=== PATIENT | female | born 2000 | race Caucasian/White ===

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

== ENCOUNTER 2023-03-08 11:26 | Emergency (ER) | payer OTHER ==
[~2023-03-08] VITALS: Ht 167.7 cm; Wt 55.3 kg
--- NOTE | 2023-03-08 11:55 | ED Abdominal Pain ---
General Chief Complaint: Abdominal/GI Problems Stated Complaint: AB PAIN Source of Information: Patient Exam Limitations: No Limitations History of Present Illness Date Seen by Provider: Mar 08, 2023 Time Seen by Provider: 11:29 Initial Comments 22-year-old female presents the ER with complaints of right upper and lower abdominal pain that started on the morning of March 04. She states that she has been vomiting every time she eats or drinks since March 04. She reports that prior to March 04, she was constipated, she states now she has been having 2-3 episodes of diarrhea a day since the evening of March 04. She states she was seen at [facility] yesterday, they gave her Zofran which provided minimal relief. She states that they wanted her to come to the ER yesterday, but she did not want to. They told her to come to the ER if she got worse, and that is why she is here today. She says that [facility] is setting up an ultrasound for her, she is uncertain of exactly what they are ultrasounding. She denies fevers, vaginal bleeding, discharge, dysuria. Last menstrual cycle was 02/12. Previous abdominal surgeries includes an appendectomy. I spoke with nurse practitioner Lior at [facility] who saw patient yesterday. He states that he was concerned for cholecystitis due to patient complaint of right upper quadrant pain with nausea and vomiting and pain becoming worse after eating. He ordered an outpatient ultrasound of the gallbladder. Allergies and Home Medications Allergies Coded Allergies: No Known Drug Allergies (Unverified , 01/02/13) Patient Home Medication List Home Medication List Reviewed: Yes Albuterol Sulfate (Ventolin Hfa) 18 Gm Hfa.aer.ad, 2 PUFF IH TID PRN for SHORTNESS OF BREATH, (Reported) Entered as Reported by: ARTURO PATEL on 07/21/17 175 Dicyclomine HCl (Dicyclomine HCl) 20 Mg Tablet, 20 MG PO QID Prescribed by: Jo Alejo on 03/08/23 1348 Hydrocodone Bit/Acetaminophen (Lortab 5 Mg Tablet) 1 Each Tablet, 1-2 TAB PO 4-6HR PRN for PAIN Prescribed by: BRADFORD LI on 07/21/17 1903 Ondansetron (Ondansetron Odt) 4 Mg Tab.rapdis, 4 MG PO TID PRN for NAUSEA/VOMITING-1ST LINE, (Reported) Entered as Reported by: ARTURO PATEL on 07/21/17 6466 Review of Systems Review of Systems Constitutional: see HPI Past Aolokuj-Updcsz-Dyyeil Hx Patient Social History Tobacco Use?: Yes Tobacco type used: Cigarettes Smoking Status: Never a Smoker Smokeless Tobacco Frequency: Never a User Use of E-Cig and/or Vaping dev: Yes E-Cig or Vaping type used: Nicotine Use of E-Cig and/or Vaping Cade: Current Everyday User Substance use?: Yes Substance type: Marijuana, Other Additional substance use comme: COCAINE WEEKLY, POT DAILY Substance frequency: Daily Alcohol Use?: Yes Alcohol Frequency: Couple times a week Pt feels they are or have been: No Immunizations Up To Date Tetanus Booster (TDap): Unknown PED Vaccines UTD: Yes Seasonal Allergies Seasonal Allergies: No Past Medical History Surgeries: No Respiratory: No Currently Using CPAP: No Currently Using BIPAP: No Cardiac: No Neurological: No Reproductive Disorders: No Female Reproductive Disorders: Denies Sexually Transmitted Disease: No HIV/AIDS: No Gastrointestinal: No Musculoskeletal: No Endocrine: No Hearing Impairment: Denies Cancer: No Psychosocial: No Integumentary: No Blood Disorders: No Adverse Reaction/Blood Tranf: No Family Medical History Hypertension No Pertinent Family Hx Physical Exam Vital Signs Vital Signs - First Documented 03/08/23 11:38 Temp 36.2 Pulse 72 Resp 17 B/P (MAP) 109/93 (98) O2 Delivery Room Air Capillary Refill : Height/Weight/BMI Height: 5'4.00" Weight: 115lbs. 0oz. [id number]; 20.00 BMI Method:Stated General Appearance: WD/WN, no apparent distress Neck: supple, normal inspection Respiratory: lungs clear, normal breath sounds, no respiratory distress, no accessory muscle use Cardiovascular: regular rate, rhythm, no edema, no murmur Gastrointestinal: normal bowel sounds (normal lower quadrants), soft, abnormal bowel sounds (hypoactive upper quadrants); No rebound; tenderness (Right lower quadrant) Extremities: normal range of motion, normal inspection Neurologic/Psychiatric: alert, normal mood/affect Skin: normal color, warm/dry Progress/Results/Core Measures Results/Orders Lab Results Laboratory Tests Test 03/08/23 11:55 03/08/23 12:26 Range/Units White Blood Count 3.8 L 4.3-11.0 10^3/uL Red Blood Count 4.08 3.80-5.11 10^6/uL Hemoglobin 13.2 11.5-16.0 g/dL Hematocrit 40 35-52 % Mean Corpuscular Volume 97 80-99 fL Mean Corpuscular Hemoglobin 32 25-34 pg Mean Corpuscular Hemoglobin Concent 33 32-36 g/dL Red Cell Distribution Width 12.2 10.0-14.5 % Platelet Count 142 130-400 10^3/uL Mean Platelet Volume 10.3 9.0-12.2 fL Immature Granulocyte % (Auto) 0 % Neutrophils (%) (Auto) 50 42-75 % Lymphocytes (%) (Auto) 33 12-44 % Monocytes (%) (Auto) 13 H 0-12 % Eosinophils (%) (Auto) 4 0-10 % Basophils (%) (Auto) 0 0-10 % Neutrophils # (Auto) 1.9 1.8-7.8 10^3/uL Lymphocytes # (Auto) 1.3 1.0-4.0 10^3/uL Monocytes # (Auto) 0.5 0.0-1.0 10^3/uL Eosinophils # (Auto) 0.2 0.0-0.3 10^3/uL Basophils # (Auto) 0.0 0.0-0.1 10^3/uL Immature Granulocyte # (Auto) 0.0 0.0-0.1 10^3/uL Sodium Level 141 135-145 MMOL/L Potassium Level 3.8 3.6-5.0 MMOL/L Chloride Level 107 98-107 MMOL/L Carbon Dioxide Level 24 21-32 MMOL/L Anion Gap 10 5-14 MMOL/L Blood Urea Nitrogen 6 L 7-18 MG/DL Creatinine 0.88 0.60-1.30 MG/DL Estimat Glomerular Filtration Rate 96 BUN/Creatinine Ratio 7 Glucose Level 95 70-105 MG/DL Calcium Level 9.3 8.5-10.1 MG/DL Corrected Calcium 9.1 8.5-10.1 MG/DL Total Bilirubin 0.7 0.1-1.0 MG/DL Aspartate Amino Transf (AST/SGOT) 25 5-34 U/L Alanine Aminotransferase (ALT/SGPT) 19 0-55 U/L Alkaline Phosphatase 67 40-136 U/L C-Reactive Protein High Sensitivity 0.23 0.00-0.50 MG/DL Total Protein 6.9 6.4-8.2 GM/DL Albumin 4.2 3.2-4.5 GM/DL Lipase 17 8-78 U/L Urine Color YELLOW Urine Clarity SL CLOUDY Urine pH 7.5 5-9 Urine Specific [place] 1.020 1.016-1.022 Urine Protein NEGATIVE NEGATIVE Urine Glucose (UA) NEGATIVE NEGATIVE Urine Ketones NEGATIVE NEGATIVE Urine Nitrite NEGATIVE NEGATIVE Urine Bilirubin NEGATIVE NEGATIVE Urine Urobilinogen 0.2 < = 1.0 MG/DL Urine Leukocyte Esterase TRACE H NEGATIVE Urine RBC (Auto) NEGATIVE NEGATIVE Urine RBC RARE /HPF Urine WBC 2-5 /HPF Urine Squamous Epithelial Cells 25-50 H /HPF Urine Crystals NONE /LPF Urine Bacteria MODERATE H /HPF Urine Casts NONE /LPF Urine Mucus NEGATIVE /LPF Urine Culture Indicated YES My Orders Orders - JO ALEJO APRN Ua Culture If Indicated (03/08/23 11:29) Urine Bedside (03/08/23 11:29) Comprehensive Metabolic Panel (03/08/23 11:48) Lipase (03/08/23 11:48) Ed Iv/Invasive Line Start (03/08/23 11:48) Cbc With Automated Diff (03/08/23 11:48) Ketorolac Injection (Toradol Injection) (03/08/23 12:00) Ondansetron Injection (Zofran Injectio (03/08/23 12:00) Hs C Reactive Protein (03/08/23 11:48) Ns Iv 1000 Ml (Sodium Chloride 0.9%) (03/08/23 12:00) Ct Abdomen/Pelvis W (03/08/23 12:34) Iohexol Injection (Omnipaque 350 Mg/Ml 1 (03/08/23 12:45) Received Contrast (Hold Metformin- Contr (03/08/23 12:45) Ns (Ivpb) (Sodium Chloride 0.9% Ivpb Bag (03/08/23 12:45) Urine Culture (03/08/23 12:26) Medications Given in ED Current Medications Medications Dose Ordered Sig/Pearl Route Start Time Stop Time Status Last Admin Dose Admin Iohexol 100 ml ONCE ONCE IV 03/08/23 12:45 03/08/23 12:46 DC 03/08/23 12:52 63 ML Ketorolac Tromethamine 15 mg ONCE ONCE IVP 03/08/23 12:00 03/08/23 12:01 DC 03/08/23 11:57 15 MG Ondansetron HCl 4 mg ONCE ONCE IVP 03/08/23 12:00 03/08/23 12:01 DC 03/08/23 11:56 4 MG Sodium Chloride 100 ml ONCE ONCE IV 03/08/23 12:45 03/08/23 12:46 DC 03/08/23 12:52 80 ML Vital Signs/I&O 03/08/23 11:38 Temp 36.2 Pulse 72 Resp 17 B/P (MAP) 109/93 (98) O2 Delivery Room Air Progress Progress Note : Progress Note Patient seen and evaluated, resting in bed, no acute distress. Based on exam and symptoms, differential diagnosis includes but is not limited to gastroenteritis, irritable bowel syndrome, UTI, pyelonephritis, nephrolithiasis, mesenteric adenitis, or other intra-abdominal pathologies. She complains of right-sided abdominal pain, upper and lower. But on examination she has no tenderness to palpation in the right upper quadrant, only tenderness to palpation of the right lower quadrant. Work-up initiated including CBC, CMP, lipase, CRP, UA, urine . IV fluids, Toradol, Zofran ordered. [address] reviewed. CBC grossly normal, WBC slightly decreased 3.8. CMP grossly normal, CRP normal. Lipase normal. Urinalysis shows slightly elevated urine specific gravity 1.020, trace leukocytes, 2-5 WBCs, 25-50 squamous epithelial cells, moderate bacteria. Urine specimen is likely contaminated. Patient denies any urinary tract infection symptoms. CT shows no acute abnormality. Results discussed with patient. I think this is likely a viral gastroenteritis. Patient reports some improvement in pain and nausea. I offered more pain medication or nausea medication, patient declined. Discharge instructions and return precautions provided. After patient was given discharge paperwork, I decided to add Bentyl prescription. This was sent in. Bentyl prescription was discussed with patient. I also discussed with patient that she may try omeprazole [id number]. Departure Impression Primary Impression: Gastroenteritis Disposition: 01 HOME, SELF-CARE Condition: Stable Departure-Patient Inst. Decision time for Depature: 13:37 Referrals: [facility] [place] (PCP/Family) Primary Care Physician Patient Instructions: Clear Liquid Diet, Viral gastroenteritis in adults Add. Discharge Instructions: Consume a clear liquid diet for at least the next 24 hours. You may then slowly start to reincorporate food once your pain improves. When you start consuming food again, start with a BRAT diet: Bananas, rice, applesauce, toast. Try to consume plenty of fluids, take your Zofran to prevent vomiting. Keep in mind that one side effect of Zofran is constipation. Follow-up with your primary care provider if symptoms or not improving. Return for severe pain, recurrent vomiting, recurrent diarrhea, fever, or any other new, concerning, or worsening symptoms. All discharge instructions reviewed with patient and/or family. Voiced understanding. Scripts Dicyclomine HCl (Dicyclomine HCl) 20 Mg Tablet 20 MG PO QID, #28 TAB 0 Refills Prov: JO ALEJO APRN 03/08/23 JO ALEJO APRN Mar 08, 2023 11:55
[2023-03-08] MEDS ORDERED: ONDANSETRON 4 MG/2 ML (SDV) Z0FRAN IVP ONE (12:00)
[2023-03-08] MEDS ORDERED: KETOROLAC 30 MG/ML VIAL IVP ONE (12:00)
[2023-03-08] MEDS ORDERED: NS IV 1000 ML 1,000 ML IV SCH (12:00)
[2023-03-08 12:01] LABS: BASOPHILS % (AUTO) 0 % (0-10); EOSINOPHILS # (AUTO) 0.2 10^3/uL (0.0-0.3); EOSINOPHILS % (AUTO) 4 % (0-10); HEMATOCRIT 40 % (35-52); HEMOGLOBIN 13.2 g/dL (11.5-16.0); LYMPHOCYTES # (AUTO) 1.3 10^3/uL (1.0-4.0); LYMPHOCYTES % (AUTO) 33 % (12-44); MEAN CORPUSCULAR HEMOGLOBIN 32 pg (25-34); MEAN CORPUSCULAR HGB CONC 33 g/dL (32-36); MEAN CORPUSCULAR VOLUME 97 fL (80-99); MEAN PLATELET VOLUME 10.3 fL (9.0-12.2); MONOCYTES # (AUTO) 0.5 10^3/uL (0.0-1.0); MONOCYTES % (AUTO) 13 % (0-12); NEUTROPHILS # (AUTO) 1.9 10^3/uL (1.8-7.8); NEUTROPHILS % (AUTO) 50 % (42-75); PLATELET COUNT 142 10^3/uL (130-400); WHITE BLOOD COUNT 3.8 10^3/uL (4.3-11.0)
[2023-03-08 12:16] LABS: ALBUMIN 4.2 GM/DL (3.2-4.5)
[2023-03-08 12:17] LABS: POTASSIUM 3.8 MMOL/L (3.6-5.0)
[2023-03-08 12:18] LABS: CALCIUM 9.3 MG/DL (8.5-10.1)
[2023-03-08 12:19] LABS: TOTAL PROTEIN 6.9 GM/DL (6.4-8.2)
[2023-03-08 12:21] LABS: BILIRUBIN,TOTAL 0.7 MG/DL (0.1-1.0)
[2023-03-08 12:23] LABS: CREATININE SERUM 0.88 MG/DL (0.60-1.30)
[2023-03-08 12:43] LABS: BILIRUBIN,URINE NEGATIVE (NEGATIVE); CLARITY,URINE SL CLOUDY; COLOR,URINE YELLOW; GLUCOSE, URINE (UA) NEGATIVE (NEGATIVE); KETONES,URINE NEGATIVE (NEGATIVE); LEUKOCYTE ESTERASE ,URINE TRACE (NEGATIVE); NITRITE,URINE NEGATIVE (NEGATIVE); PH,URINE 7.5 (5-9); PROTEIN,URINE NEGATIVE (NEGATIVE)
[2023-03-08] MEDS ORDERED: NS 100 ML (IVPB) BAG IV ONE (12:45)
[2023-03-08] MEDS ORDERED: IOHEXOL 350 MG/ML 100 ML (OMNIPAQUE 350) VIAL IV ONE (12:45)
[2023-03-08] MEDS ORDERED: HOLD METFORMIN - RECEIVED CONTRAST 20 ML VIAL IV SCH (12:45)
[2023-03-08 12:54] LABS: BACTERIA,URINE MODERATE /HPF; RBC,URINE RARE /HPF; SQUAMOUS EPITHELIAL CELL,UR 25-50 /HPF
--- NOTE | 2023-03-08 13:21 | Diagnostic Imaging Report ---
EXAMINATION: CT abdomen and pelvis with intravenous contrast. TECHNIQUE: Multiple contiguous axial images were obtained through the abdomen and pelvis after the uneventful administration of intravenous contrast. All CT scans use one or more of the following dose optimizing techniques: Automated exposure control, MA and/or KvP adjustment based on patient size and exam type or iterative reconstruction. HISTORY: Right lower quadrant pain. COMPARISON: 07/21/2017. FINDINGS: The heart is unremarkable. The included lung bases are clear. The liver, spleen, pancreas, adrenal glands, and kidneys have a normal appearance. The gallbladder is nondistended. There is no pathologically enlarged mesenteric or retroperitoneal adenopathy. The bowel loops are nondilated. The appendix is surgically absent. There is no free fluid or free air. No acute osseous abnormalities. Ureters and bladder are grossly normal. There is no free air, loculated collection, or adenopathy in the pelvis. IMPRESSION: 1. No bowel obstruction. No free fluid or free air. Dictated by: Dictated on workstation # [id number]
[2023-03-08 13:42] VITALS: BP 121/68
[2023-03-08] MEDS ORDERED: DICY20TA PO (13:48)
== END 2023-03-08 13:42 | disposition home or self-care (01) ==
LOC: EDUNIT# 11:26 → ER 11:28
DX: K52.9 Noninfective gastroenteritis and colitis, unspecified (principal); F17.210 Nicotine dependence, cigarettes, uncomplicated; F17.290 Nicotine dependence, other tobacco product, uncomplicated; Z28.310 Unvaccinated for COVID-19; Z90.49 Acquired absence of other specified parts of digestive tract
CPT/HCPCS: 36415; 74177; 80053; 81000; 83690; 84703; 85025; 86141; 87077; 87088